=== PATIENT | female | born 1995 | race Caucasian/White ===

== ENCOUNTER 2020-05-08 12:41 | Outpatient (REF) | payer BC, SELFPAY ==
[2020-05-08 13:22] LABS: Bilirubin Negative (Negative); Blood Negative (Negative); Clarity Clear (Clear); Glucose Negative (Negative); Ketones Negative (Negative); Leukocyte Esterase Negative (Negative); Nitrite Negative (Negative); Specific Gravity 1.015 (1.005-1.025); Urobilinogen 0.2 EU/dL (Up TO 0.2); pH 7.5 (5-8)
== END 2020-05-08 13:01 ==
LOC: LBN 12:41
PROVIDERS: Visit Provider Advanced Practice Midwife
DX: R30.9 Painful micturition, unspecified (principal)
CPT/HCPCS: 81003; 87086

== ENCOUNTER → 2021-12-16 11:39 | Outpatient (CLI) | payer OTHER, SELFPAY ==
--- NOTE | 2021-12-16 | DI.RAD_ITS ---
Exam(s) XR ANKLE RT COMPLETE EXAM: XR ANKLE RT COMPLETE CLINICAL HISTORY: Trauma to leg , persistent swelling, acute pain--M79.606. TECHNIQUE: 2D digital imaging was performed. COMPARISON: No exams were available for comparison FINDINGS: 3 views No evidence of fracture nor widening of the ankle mortise. Talar dome unremarkable. Bone density no rmal. No osseous lesions. On the lateral view there is a finding which is probably an accessory oss icle proximal to the navicular bone. No evidence of osseous tarsal coalition. IMPRESSION: No significant osseous findings. If clinically indicated follow-up ankle MRI can be performed. DATA REPOSITORY: RADIATION DOSE DELIVERED:
== END ==
PROVIDERS: Visit Provider Nurse Practitioner Family
DX: M25.571 Pain in right ankle and joints of right foot (principal); M79.661 Pain in right lower leg
CPT/HCPCS: 73610

== ENCOUNTER 2022-09-05 01:40 | Outpatient (CLI) | payer OTHER, SELFPAY ==
[2022-09-05 10:49] LABS: HCT 42.2 % (36.0-46.0); HGB 13.4 g/dL (11.2-15.7); MCH 29.1 pg (27.0-33.0); MCHC 31.8 % (32.0-36.0); MCV 92 fL (80-95); MPV 10.9 fL (8.0-11.0); Platelet Count 223 10^3/uL (130-400); RDW-SD 43.9 fL; WBC 5.83 10^3/uL (4.4-10.8)
[2022-09-05 11:40] LABS: Anion Gap 7.2 mmol/L (3-11); BUN 14 mg/dL (7-18); CO2 29.8 mmol/L (21.0-32.0); CREATININE 0.8 mg/dL (0.55-1.02); Calcium 8.8 mg/dL (8.5-10.1); Calculated LDL 79 mg/dL (<100); Chloride 106 mmol/L (98-107); Cholesterol 149 mg/dL (<200); Estimated GFR 104.15 (mL/min/1.73m2); Glucose 110 mg/dL (74-106); HDL Cholesterol 62 mg/dL (40-60); Potassium 3.5 mmol/L (3.5-5.1); Sodium 143 mmol/L (136-145); TSH 1.98 uIU/mL (0.36-3.74); Triglyceride 43 mg/dL (<150)
[2022-09-08 10:40] LABS: IgA 57 mg/dL (85-499); IgG 660 mg/dL (610-1616); IgM 74 mg/dL (35-242)
== END 2022-09-05 01:41 | disposition home or self-care (01) ==
PROVIDERS: Visit Provider Registered Nurse
DX: Z00.00 Encounter for general adult medical examination without abnormal findings (principal); D80.2 Selective deficiency of immunoglobulin A [IgA]
CPT/HCPCS: 36415; 80048; 80061; 82784; 85027; 84443

== ENCOUNTER 2023-06-23 12:53 | Outpatient (REF) | payer OTHER, SELFPAY ==
[2023-06-23 14:02] LABS: *AMPHETAMINES SCREEN URINE Positive (Negative); *BARBITURATES SCREEN URINE Negative (Negative); *BENZODIAZEPINES SCREEN URINE Negative (Negative); Cannabinoids THC Negative (Negative); Cocaine Screen,Urine Negative (Negative); METHADONE URINE SCREEN Negative (Negative); OPIATES URINE SCREEN Negative (Negative); Tricyclic Antidepressants Negative (Negative)
[2023-06-27 07:11] LABS: Methylphenidate Negative ng/mL (Cutoff: 10); Ritalinic Acid Negative ng/mL (Cutoff: 50)
== END 2023-06-23 12:54 | disposition home or self-care (01) ==
LOC: LBN 12:53
PROVIDERS: Visit Provider Nurse Practitioner Psychiatric/Mental Health
DX: F90.2 Attention-deficit hyperactivity disorder, combined type (principal); Z79.899 Other long term (current) drug therapy
CPT/HCPCS: 80307; 80360

== ENCOUNTER → 2023-11-12 12:18 | Outpatient (CLI) | payer OTHER, SELFPAY ==
--- OUTSIDE RECORDS SUMMARY | 2023-11-12 12:20 | XMS_ITS | Continuity of Care Document ---
Author Name Unknown Organization [facility] Address [address] [place] [address] Care Team Providers Care Hat Marker Name Role Phone Brian Torres Primary Care Physician Encounter [facility] Date(s): 08/06/22 - 08/06/[address] [id number] Discharge Disposition: Home or Self Care Attending Physician: Jayde Manzano DNP Admitting Physician: Jayde Manzano DNP Allergies, Adverse Reactions, Alerts No Known Medication Allergies Assessment and Plan Future Appointments Diagnostic Tests Pending * Amphetamines Cnfrm, Ur DARNELL 08/06/22 Future Scheduled Tests Radiology* XR Ankle Complete 3+ Views Right 12/16/21 * XR Tibia/Fibula Right 12/16/21 Immunizations Given and Recorded Vaccine Date Status Refusal Reason influenza virus vaccine, inactivated 1 02/27/22 Re corded influenza virus vaccine, inactivated 04/10/17 Tj rded influenza virus vaccine, inactivated 02/02/15 Tj rded SARS-CoV-2 (COVID-19) mRNA BNT-162b2 vax 05/13/21 Recorded SARS-CoV-2 (COVID-19) mRNA BNT-162b2 vax 05/23/20 Recorded SARS-CoV-2 (COVID-19) mRNA BNT-162b2 vax 05/02/20 Recorded influenza virus vaccine, live 01/22/21 Recorded influenza virus vaccine, live 02/20/20 Recorded influenza virus vaccine, live 02/25/18 Recorded tetanus-diphth toxoids (Td) adult/adol 07/13/17 Re corded hepatitis A adult vaccine 07/13/17 Recorded hepatitis A adult vaccine 01/02/16 Recorded typhoid vaccine, inactivated 07/13/17 Recorded hepatitis B adult vaccine 05/25/17 Recorded meningococcal conjugate vaccine 07/07/14 Recorded meningococcal conjugate vaccine 01/22/10 Recorded HPV, unspecified formulation 10/14/12 Recorded HPV, unspecified formulation 05/27/12 Recorded HPV, unspecified formulation 03/25/12 Recorded tetanus/diphth/pertuss (Tdap) adult/adol 01/03/08 Recorded varicella virus vaccine 01/03/08 Recorded varicella virus vaccine 02/01/04 Recorded diphtheria/pertussis, acellular/tetanus 05/06/01 R ecorded diphtheria/pertussis, acellular/tetanus 12/12/97 R ecorded poliovirus vaccine, inactivated 05/06/01 Recorded poliovirus vaccine, inactivated 96 Recorded measles/mumps/rubella virus vaccine 06/04/00 Recor ded measles/mumps/rubella virus vaccine 05/18/97 Recor ded poliovirus vaccine, live, trivalent 12/12/97 Recor ded poliovirus vaccine, live, trivalent 96 Recor ded poliovirus vaccine, live, trivalent 96 Recor ded haemophilus b conjugate (PRP-T) vaccine 12/12/97 R ecorded hepatitis B pediatric vaccine 09/04/97 Recorded hepatitis B pediatric vaccine 02/06/97 Recorded hepatitis B pediatric vaccine 96 Recorded DTP-Hib 96 Recorded DTP-Hib 96 Recorded DTP-Hib 96 Recorded 1Result Comment: [employer] Medications Adderall 20 mg oral tablet 20 mg 1 tab, Oral, every morning, # 28 tab, 0 Refill(s), Pharmacy: [id number], 162.56, cm, 11/07/21 3:24:00 EDT, Height/Length Dosing, 54.43, kg, 11/07/21 3:24:00 EDT, Weight Dosing Start Date: 08/06/22 Stop Date: 09/03/22 Status: Ordered Adderall XR 20 mg oral capsule, extended release 20 mg 1 cap, Oral, every morning, Please fill 10/14/2022, # 28 cap, 0 Refill(s), Pharmacy: [id number], 162.56, cm, 11/07/21 3:24:00 EDT, Height/Length Dosing, 54.43, kg, 11/07/21 3:24:00 EDT, Weight Dosing Start Date: 08/06/22 Stop Date: 09/03/22 Status: Ordered Adderall XR 20 mg oral capsule, extended release 20 mg 1 cap, Oral, every morning, Please fill 09/16/2022, # 28 cap, 0 Refill(s), Pharmacy: [id number], 162.56, cm, 11/07/21 3:24:00 EDT, Height/Length Dosing, 54.43, kg, 11/07/21 3:24:00 EDT, Weight Dosing Start Date: 08/06/22 Stop Date: 09/03/22 Status: Ordered Adderall XR 20 mg oral capsule, extended release 20 mg 1 cap, Oral, every morning, May fill 07/18/2022, # 30 cap, 0 Refill(s), Pharmacy: [id number], 162.56, cm, 11/07/21 3:24:00 EDT, Height/Length Dosing, 54.43, kg, 11/07/21 3:24:00 EDT,Weight Dosing Start Date: 05/14/22 Stop Date: 06/13/22 Status: Ordered Albuterol (Eqv-ProAir HFA) 90 mcg/inh inhalation aerosol See Instructions, 1-2 puffs every 4-6 hours as needed and 20 minutes prior to exercise, # 1 EA, 2 Refill(s), Pharmacy: [id number], 162.56, cm, 11/07/21 3:24:00 EDT, Height/Length Dosing, 54.43, kg, 11/07/21 3:24:00 EDT, Weight Dosing Start Date: 01/16/22 Status: Ordered multivitamin adult, oral tablet 1 tab, Oral, Daily Start Date: 12/02/21 Status: Ordered NuvaRing 0.120 mg-0.015 mg/24 hours vaginal ring 1 EA, VAG, every 4 wk, # 3 EA, 4 Refill(s), Pharmacy: [id number], 162.56, cm, 11/07/21 3:24:00 EDT, Height/Length Dosing, 54.43, kg, 11/07/21 3:24:00 EDT, Weight Dosing Start Date: 12/05/21 Status: Ordered Problem List Condition Confirmation Course Effective Dates Status H ealth Status Informant Attention deficit hyperactivity disorder (ADHD), combined type Confirmed Active Chronic gastritis Confirmed 02/09/18 Active Cough Confirmed 04/15/18 Active 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 Mild major depression Confirmed 03/26/21 Active Encounter for medication management Confirmed Active Medication management Confirmed Active Premenstrual dysphoric disorder Confirmed 03/27/20 Active Tremor Confirmed 01/02/21 Active Procedures Procedure Date Related Diagnosis Body Site Status Pap Due - 12/2023 1 12/23/20 Co mpleted Endoscopy 05/10/17 Completed 1Pap Due - 12/2023 08/04/17 - Negative; 12/24/20 - Negative Results Laboratory List Name Date Drug Screen Urine (Drug Screen Urine w/ Reflex) 08/06/22 Most recent to oldest [Reference Range]: 1 U Amph Scrn [Negative] Positive *ABN* (08/06/22 3:32 PM) U Benzodia Scrn [Negative] Negative (08/06/22 3:32 PM) U Cocaine Scrn [Negative] Negative (08/06/22 3:32 PM) U Brittney Scrn [Negative] Negative (08/06/22 3:32 PM) U Opiate Scrn [Negative] Negative (08/06/22 3:32 PM) U Oxy Scrn [Negative] Negative (08/06/22 3:32 PM) U PCP Scrn [Negative] Negative (08/06/22 3:32 PM) U THC Scr [Negative] Negative (08/06/22 3:32 PM) U PPX Scr [Negative] Negative (08/06/22 3:32 PM) U Methadone Scr [Negative] Negative (08/06/22 3:32 PM) U Buprenorph Scr [Negative] Negative (08/06/22 3:32 PM) U mAMP Scr [Negative] Negative (08/06/22 3:32 PM) U TCA Scr [Negative] Negative (08/06/22 3:32 PM) Social History Social History Type Response Tobacco Never tobacco user T obacco Use:. Sex Female summary Document * Event Display: Summary Document Authored Date: [id number] HECTOR CAMARA : 1995 Age: 27 Years HECTOR CAMARA : [birth year] Summary (Date of Report: 06/16/22) G 1 P 0 (0,0,1,0) Gestation: -- LMP (from pt. history): -- EDITH: 05/29/2022 EDITH/EGA Method: Last Menstrual Period EGA: 42 weeks 4 days HECTOR CAMARA : [birth year] Antepartum Note No antepartum notes have been documented HOA HECTOR GRACIELA : [birth year] Problems (Active Problems Only) (SNOMED CT: 169682911, Onset: 08/22/21) Mild major depression (SNOMED CT: 272873173, Onset: 03/26/21) Tremor (SNOMED CT: 64120019, Onset: 01/02/21) Premenstrual dysphoric disorder (SNOMED CT: 6854970, Onset: 03/27/20) Cough (SNOMED CT: 32855178, Onset: 04/15/18) Immunoglobulin A deficiency (SNOMED CT: 64205297, Onset: 04/06/18) Chronic gastritis (SNOMED CT: 06810371, Onset: 02/09/18) [facility], Onset: --) Attention deficit hyperactivity disorder, combined type [facility]: 4[facility], Onset: --) HOA HECTOR GRACIELA : [birth year] Risk Factors and Genetic Screening All Results Documented Since 08/22/2021 Risk Factors (Current ) No risk factors have been recorded for this . Ethnic Screening No ethnicities have been recorded. Genetic Disorders Screening No genetic disorders have been recorded. HECTOR CAMARA : [birth year] Gestational Age (EGA) and EDITH * Note: EGA calculated as of 06/16/2022 EDITH: 05/29/2022 EGA*: 42 weeks 4 days Type: Authoritative Method Date: 08/22/2021 Method: Last Menstrual Period (08/22/2021) Confirmation: Confirmed Description: -- Comments: -- Entered by: Michelle Abbott on 09/30/2021 Other EDITH Calculations for this : No additional EDITH calculations have been recorded for this HECTOR CAMARA : [birth year] Measurements Pre- Weight: -- Recent Weight Measured: 53.25 kg 05/14/22 (37 weeks) Height/Length Measured: -- Body Mass Index Measured: -- HECTOR CAMARA : [birth year] Exam and Notes Date HERMELINDO He PTL S/S Cervix BP Weight Urine Baby cm Dil Eff(%) Sta mmHg lbs kg Gluc Prot FHR Activity Fet Pres 05/14/22 37w6d -- -- -- -- -- 120/80 *117... -- -- -- -- -- 01/31/22 23w1d -- -- -- -- -- 120/80 *117... -- -- -- -- -- 12/16/21 16w4d -- -- -- -- -- 112/72 *116... -- -- -- -- -- 12/05/21 15w0d -- -- -- -- -- -- *252... -- -- -- -- -- 11/07/21 11w0d -- -- -- -- -- 117/73 -- -- -- -- -- -- * Weight 05/14/2022 117.416(lbs) 53.25(kg) 01/31/2022 117.857(lbs) 53.45(kg) 12/16/2021 116.711(lbs) 52.93(kg) 12/05/2021 252.914(lbs) 114.7(kg) HOA HECTOR GRACIELA : [birth year] Physical Exams Physical Exam Respiratory SpO2: 100 % (05/14/22) HOA HECTOR GRACIEAL : [birth year] Blood Types and Anti-D Immune Globulin Blood Type and Screen Mother ABO/Rh: A POS Mother Antibody Screen: -- Father of Baby ABO/Rh: -- Father of Baby Antibody Screen: -- Anti-D Immune Globulin Rho(D) Initial Status: -- Rho(D) 28 Week Status: -- Rho(D) Dates Given: -- HOA HECTOR GRACIELA : [birth year] Tests and Lab Results Results ending with 'TR' have been keyed in by the practice or interpreted manually. Result Date: Estimated weeks post onset will display next to actual result date. Test Result Date Ref Range Beta hCG Qnt (H) 203 mIntlUnit/mL 09/24/21 (4 weeks) (1 - 6) WBC 7.0 x10^6/mcL 10/08/21 (6 weeks) (5.0 - 10.0) RBC 4.5 x10^6/mcL 10/08/21 (6 weeks) (4.1 - 5.3) MCV 94.9 fL 10/08/21 (6 weeks) (80.0 - 103.0) MCHC 31.8 g/dL 10/08/21 (6 weeks) (31.0 - 35.0) Hct 42.5 % 10/08/21 (6 weeks) (37.0 - 47.0) MCH 30.1 pg 10/08/21 (6 weeks) (26.0 - 32.0) Hgb 13.5 g/dL 10/08/21 (6 weeks) (12.0 - 16.0) Platelets 158 x10^3/mcL 10/08/21 (6 weeks) (130 - 450) RDW-CV 12.9 % 10/08/21 (6 weeks) (11.7 - 17.0) UA RBC 0-2 10/08/21 (6 weeks) 0-2 UA WBC 0-3 10/08/21 (6 weeks) 0-3 UA Bacteria Rare /HPF 10/08/21 (6 weeks) UA Mucous None Seen /HPF 10/08/21 (6 weeks) UA Culture Ind?. Not Applicable 10/08/21 (6 weeks) UA Squam Epithelial Rare 10/08/21 (6 weeks) None Seen UA Color Yellow 10/08/21 (6 weeks) UA Spec Grav (N) 1.010 10/08/21 (6 weeks) UA Blood Negative 10/08/21 (6 weeks) UA Appear Clear 10/08/21 (6 weeks) UA pH (N) 7.5 10/08/21 (6 weeks) UA Protein Negative 10/08/21 (6 weeks) UA Glucose Negative 10/08/21 (6 weeks) Negative UA Nitrite Negative 10/08/21 (6 weeks) UA Leuk Est Negative 10/08/21 (6 weeks) UA Ketones Negative 10/08/21 (6 weeks) UA Bili Negative 10/08/21 (6 weeks) Negative UA Urobilinogen Normal 10/08/21 (6 weeks) ABO/Rh Type (U) A POS 10/08/21 (6 weeks) Antibody Screen Gel Negative ABSC 10/08/21 (6 weeks) Hep B Surface Ag [facility] (N) Negative 10/08/21 (6 weeks) Negative HIV 1 and 2 Ab/p24 Ag, 4th Gen [facility] (N) Negative 10/08/21 (6 weeks) Negative Hep C Antibody [facility] (N) Negative 10/08/21 (6 weeks) Negative Rubella IgG Ab [facility] (N) Positive 10/08/21 (6 weeks) See Note Syphilis Serology [facility] (N) Negative 10/08/21 (6 weeks) Negative Beta hCG Qnt (H) 13457 mIntlUnit/mL 10/14/21 (7 weeks) (1 - 6) Test Result Date Ref Range Beta hCG Qnt (H) 54949 mIntlUnit/mL 10/24/21 (9 weeks) (1 - 6) Beta hCG Qnt (H) 69819 mIntlUnit/mL 10/31/21 (10 weeks) (1 - 6) Platelets 176 x10^3/mcL 11/07/21 (11 weeks) (130 - 450) Hgb 12.7 g/dL 11/07/21 (11 weeks) (12.0 - 16.0) MCH 29.5 pg 11/07/21 (11 weeks) (26.0 - 32.0) Hct 38.9 % 11/07/21 (11 weeks) (37.0 - 47.0) MCHC 32.6 g/dL 11/07/21 (11 weeks) (31.0 - 35.0) MCV 90.5 fL 11/07/21 (11 weeks) (80.0 - 103.0) WBC 9.4 x10^3/mcL 11/07/21 (11 weeks) (5.0 - 10.0) RBC 4.3 x10^6/mcL 11/07/21 (11 weeks) (4.1 - 5.3) RDW-CV 12.6 % 11/07/21 (11 weeks) (11.7 - 17.0) Neutro Absolute (N) 7.5 x10^3/mcL 11/07/21 (11 weeks) Eos, Auto (L) 0.6 % 11/07/21 (11 weeks) (1.0 - 6.0) Lymph Auto (L) 13.7 % 11/07/21 (11 weeks) (20.0 - 50.0) [place] Auto 5.7 % 11/07/21 (11 weeks) (2.0 - 15.0) Basophil Auto 0.3 % 11/07/21 (11 weeks) (0.0 - 1.0) Imm Gran Auto 0.4 % 11/07/21 (11 weeks) (0.0 - 0.9) Neutro Auto (H) 79.3 % 11/07/21 (11 weeks) (40.0 - 75.0) U THC Scr Negative 01/31/22 (23 weeks) Negative U Brittney Scrn Negative 01/31/22 (23 weeks) Negative U Methadone Scr Negative 01/31/22 (23 weeks) Negative U PPX Scr Negative 01/31/22 (23 weeks) Negative U Opiate Scrn Negative 01/31/22 (23 weeks) Negative U Cocaine Scrn Negative 01/31/22 (23 weeks) Negative U Benzodia Scrn Negative 01/31/22 (23 weeks) Negative U Oxy Scrn Negative 01/31/22 (23 weeks) Negative U PCP Scrn Negative 01/31/22 (23 weeks) Negative U TCA Scr Negative 01/31/22 (23 weeks) Negative U Amph Scrn (A) Positive 01/31/22 (23 weeks) Negative U Buprenorph Scr Negative 01/31/22 (23 weeks) Negative U mAMP Scr Negative 01/31/22 (23 weeks) Negative Phentermine LC-MS/MS [place] (N) Negative ng/mL 01/31/22 (23 weeks) Cutoff: 25 Amphetamine LC-MS/MS [place] (N) 2455 ng/mL 01/31/22 (23 weeks) Cutoff: 25 MDMA (Ecstasy) LC-MS/MS [place] (N) Negative ng/mL 01/31/22 (23 weeks) Cutoff: 25 MDA (Ecstasy metabolite) LC-MS/MS [place] (N) Negative ng/mL 01/31/22 (23 weeks) Cutoff: 25 Pseudoephedrine/Ephedrine LC-MS/MS [place] (N) Negative ng/mL 01/31/22 (23 weeks) Cutoff: 25 Methamphetamine LC-MS/MS [place] (N) Negative ng/mL 01/31/22 (23 weeks) Cutoff: 25 Amphetamines Interp [place] (N) Positive. 01/31/22 (23 weeks) HOA HECTOR GRACIELA : [birth year] Actions No Actions have been documented. KELY CAMARAAH GRACIELA : [birth year] Situational Awareness No comments have been documented. HECTOR CAMARA : [birth year] Allergies (Active and Proposed Allergies Only) No Known Medication Allergies (Severity: Unknown, Onset: Unknown) HOA HECTOR GRACIELA : [birth year] Medications Prescriptions and Home Medications Currently Active or Taking Adderall XR 20 mg oral capsule, extended release SI mg = 1 cap, Oral, every morning, for 28 days, 28 cap, 0 Refill(s) Ordered: 05/14/22 Provider: Jayde Manzano DNP Adderall XR 20 mg oral capsule, extended release SI mg = 1 cap, Oral, every morning, for 30 days, May fill 07/18/2022, 30 cap, 0 Refill(s) Ordered: 05/14/22 Provider: Jayde Manzano DNP Adderall XR 20 mg oral capsule, extended release SI mg = 1 cap, Oral, every morning, for 30 days, May fill 06/18/2022, 30 cap, 0 Refill(s) Ordered: 05/14/22 Provider: Jayde Manzano DNP Albuterol (Eqv-ProAir HFA) 90 mcg/inh inhalation aerosol SIG: See Instructions, 1-2 puffs every 4-6 hours as needed and 20 minutes prior to exercise, 1 EA, 2 Refill(s) Ordered: 01/16/22 Provider: Jaime Collins PA-C multivitamin adult, oral tablet (Historically recorded) SI tab, Oral, Daily Ordered: 12/02/21 Provider: -- NuvaRing 0.120 mg-0.015 mg/24 hours vaginal ring SI EA, VAG, every 4 wk, 3 EA, 4 Refill(s) Ordered: 12/05/21 Provider: Rachel-Wesley, Madina CNM Inactive or Suspended (Prescriptions and documented medications since 05/24/21) Adderall XR 20 mg oral capsule, extended release SI mg = 1 cap, Oral, every morning, for 28 days, Please fill 03/28/2022, 28 cap, 0 Refill(s) Status: Completed Ordered: 03/24/22 Provider: Jayde Manzano DNP Adderall XR 20 mg oral capsule, extended release SI mg = 1 cap, Oral, every morning, for 28 days, 28 cap, 0 Refill(s) Status: Completed Ordered: 04/21/22 Provider: Jayde Manzano DNP Adderall XR 20 mg oral capsule, extended release SI mg = 1 cap, Oral, every morning, for 28 days, Please fill 02/27/2022, 28 cap, 0 Refill(s) Status: Completed Ordered: 01/31/22 Provider: Jayde Manzano DNP Adderall XR 20 mg oral capsule, extended release SI mg = 1 cap, Oral, every morning, for 28 days, Please fill 03/28/2022, 28 cap, 0 Refill(s) Status: Discontinued Ordered: 01/31/22 Provider: Jayde Manzano DNP Adderall XR 20 mg oral capsule, extended release SI mg = 1 cap, Oral, every morning, for 30 days, 30 cap, 0 Refill(s) Status: Completed Ordered: 09/25/21 Provider: Jayde Manzano DNP Adderall XR 20 mg oral capsule, extended release SI mg = 1 cap, Oral, every morning, for 30 days, 30 cap, 0 Refill(s) Status: Completed Ordered: 12/31/21 Provider: Jayde Manzano DNP Adderall XR 20 mg oral capsule, extended release SI mg = 1 cap, Oral, every morning, for 28 days, 28 cap, 0 Refill(s) Status: Discontinued Ordered: 01/28/22 Provider: Jayde Manzano DNP Adderall XR 20 mg oral capsule, extended release SI mg = 1 cap, Oral, every morning, for 30 days, 30 cap, 0 Refill(s) Status: Completed Ordered: 11/28/21 Provider: Ran Matson MD BenzaClin 1%-5% topical gel SI maricarmen, Topical, BID, 25 g, 3 Refill(s) Status: Discontinued Ordered: 10/11/21 Provider: Madina Harkins CNM Loryna 3 mg-0.02 mg oral tablet (Historically recorded) SI tab, Oral, Daily Status: Completed Ordered: 01/21/22 Provider: -- sertraline 50 mg oral tablet (Historically recorded) SI mg = 1 tab, Oral, every morning Status: Discontinued Ordered: 01/21/22 Provider: -- sertraline 50 mg oral tablet (Historically recorded) SI mg = 1 tab, Oral, every morning Status: Discontinued Ordered: 12/02/21 Provider: -- Vitamin B6 100 mg oral tablet (Historically recorded) SI mg = 2 tab, Oral, BID, with meals for 30 days Status: Discontinued Ordered: 12/02/21 Provider: -- Medication Administrations In-Office/Hospital (All in-office/hospital administrated medications ordered since 05/24/21) ibuprofen (ibuprofen 600 mg Tab [NCTY]) 600 mg = 1 tab, Oral, Once Status: Completed Ordered: 11/07/21 Provider: Ran Franco MD ibuprofen 600 mg = 1 tab, N/A, Once Status: Completed Ordered: 11/07/21 Provider: DomainUser, Generated ondansetron 4 mg = 1 EA, N/A, Once Status: Completed Ordered: 11/07/21 Provider: McUser, Generated ondansetron 4 mg = 1 tab, N/A, Once Status: Completed Ordered: 11/07/21 Provider: DomainUser, Generated THP ondansetron 4 mg Dis Tab (THP ONDANSETRON TAB 4 MG TAKE HOME (4 TAB) [NCTY]) 4 mg = 1 EA, Oral, Once Status: Completed Ordered: 11/07/21 Provider: Ran Franco MD Zofran (ondansetron 4 mg Dis Tab [NCTY]) 4 mg = 1 tab, Oral, Once Status: Completed Ordered: 11/07/21 Provider: Ran Franco MD HOA HECTOR GRACIELA : [birth year] Immunizations influenza virus vaccine, inactivated 02/27/22 (27 weeks) HOA HECTOR GRACIELA : [birth year] Menstrual History Last Recorded Menstrual Period: -- Last Menstrual Period Description: -- Menarche Onset: -- Menarche Frequency: -- Menarche Length: -- Date of Menses Prior to LMP: -- On Hormonal Contracept within 2 months of LMP: -- Date of Home Test: -- Comments: -- KELY CAMARAAH GRACIELA : [birth year] History (0,0,1,0) # 1 Baby 1 Outcome Date: 10/23/2021 Outcome or Result: Spontaneous Gest Age: 6 weeks Outcome: Sex: -- HECTOR CAMARA : [birth year] Medical History Past Medical History Attention deficit hyperactivity disorder, combined type (SNOMED CT: ) Onset Age: 24 Years (03/27/2020) Resolved: -- Family History Mother (Name not documented, Alive) Anxiety Depressive disorder Procedure or Surgical History PAP test date Age: 25 Years Date: 12/24/2020 Comment: Pap Due - 12/2023 08/04/17 - Negative; 12/24/20 - Negative (Michelle Abbott on 12/03/21) Endoscopy Age: 22 Years Date: 05/11/2017 HECTOR CAMARA : [birth year] Social & Psychosocial History Social History Alcohol Current, 1-2 times per month Employment/School Employed, Work/School description: radiology. Home/Environment Lives with Father, Mother. Nutrition/Health Caffeine intake amount: coffee-one cup daily. Sleeping concerns: No. Other Comment: 07-26-21 non-opioid consent agreement form for controlled substance signed. (01/31/2022 14:00 Vani Alford) Sexual Other contraceptive use: None. Substance Abuse Never Tobacco Never tobacco user Tobacco Use:. Psychosocial Comment: Pt. reports that the Adderall XR 20 mg''s daily is helpful in managing her ADHD symptoms especially while in school. SHe has 8 left out of 28 filled 04-25-22. Last UDS done in 01-31-22. (05/14/2022 14:23 Vani Alford); Pt. report that the Adderall XR is managing her ADHD symptoms. She stopped the Sertraline felt it was ineffective. SHe is not taking the Vitamin B-6. Uds obtained today and sent to lab. (01/31/2022 14:00 Vani Alford) Electronic Cigarette/Vaping Electronic Cigarette Use: Never. Psychosocial History No active psychosocial history has been recorded HECTOR CAMARA : [birth year] Infection History Infection history negative or not recorded HOAHECTOR GRACIELA : [birth year] Anesthesia and Transfusions Prior Anesthesia or Transfusion Received: -- Prior Anesthesia Reaction(s): -- Prior Transfusion Reaction(s): -- Blood Transfusion Acceptable to Patient: -- HECTOR CAMARA : [birth year] Plan and Patient Requests Desired Delivery Location: -- Education: -- Written Plan: -- Written Plan Location: -- Support Person/Contact Lens Manufacturer Relationship to Pt: -- Oral Intake OB: -- Labor Preferences: -- Non-Medicinal Pain Relief: -- Anesthesia/Pain Medication During Labor: -- Delivery Plan: -- Infant Feeding: -- Circumcision: -- Baby For Adoption: -- Patient Requests: -- Father of the Baby's Name: -- Zipper Lining Folder Selected: -- Surrogate : -- Support Person's Name: -- MARELYHECTOR MILES GRACIELA : [birth year] Education Educational Materials/Leaflets Provided Title/Topic Date Provided Miscarriage 11/07/21 HOAHECTOR GRACIELA : [birth year] Registration and Information Race: White Ethnicity: Not , , or German Origin Marital Status: Single Language(s): Mauritian Moravian Preference(s): Other Occupation/Education: Radiology Address, Phone, and Health Plans Home Address: [address], [place] [phone] (Home), , -- Health Plans: 1 - [employer] Member/Group: [id number] Deductible: $ -- Type: Commercial Address: [employer] [address], [place] [id number] 2 - [facility] Member/Group: [id number] Deductible: $ -- Type: Commercial Address: [employer] [address], [place] [id number] General Information OB Provider(s) Information: Madina Harkins CNM See below for detailed information for all visits and information. Delivery Center/Hospital Information: -- [place] Provider Information: -- Referring Provider Information: Jayde Manzano DNP Primary Provider Information: Brian Torres NP /Partner Information: -- -- Support Person Information: -- Planned/Unplanned : -- Date Consent Signed for Tubal Ligation: -- Date Record Sent to Hospital: -- HECTOR CAMARA : [birth year] Visits and Encounters (Known encounters since 08/22/2021. May include lab encounters.) Date Location Provider Type Medical Service 08/06/2022 [facility] Jayde [facility] 05/14/2022 [facility], Jayde [facility] 01/31/2022 [facility] Laboratory [facility], Jayde [facility] Outpatient Lab Non-Patient 01/31/2022 [facility], Jayde [facility] [place] [facility] [facility] Clinic 12/16/2021 [facility] Clinic 12/05/2021 Exam Room 5 Madina Harkins CNM Clinic [facility] 11/07/2021 9 Ran Franco MD Emergency Emergency Medicine 10/31/2021 [facility] Laboratory [place], Madina [facility] Outpatient Lab 10/24/2021 [facility] [place], Madina [facility]A Outpatient Lab 10/23/2021 [facility] Imaging Madina Harkins Outpatient US 10/14/2021 [facility] Rachel-Maryjane, Madina [facility] Outpatient Lab 10/08/2021 [facility] [place], Madina CALDERA Outpatient Lab 09/29/2021 [facility] OBGYN -- History -- 09/24/2021 [facility] Madina Harkins Outpatient Lab HECTOR CAMARA : [birth year] Visit / Encounter Location Information The following information represents known location and contact information for locations visitedduring [facility] [place] Business Address: [address], [place] [phone] ([employer]), ([employer]) [facility] Business Address: [address], [place] [id number] Phone:[phone] (Business) [facility] [place] Business Address: [address], [place] [phone] ([employer]) [facility] Business Address: [address], [address] [place], [place] [address] Phone:[phone] ([employer]), [phone] ([employer]) HECTOR CAMARA : [birth year] Visit Diagnosis (Note: All diagnoses documented since 08/22/2021) 05/14/22 - Attention-deficit hyperactivity disorder, combined type (ICD-10-CM: F90.2, Date: ) 05/14/22 - Attention-deficit hyperactivity disorder, combined type (ICD-10-CM: F90.2, Date: ) 05/14/22 - Premenstrual dysphoric disorder (ICD-10-CM: F32.81, Date: 05/14/22) 05/14/22 - Attention-deficit hyperactivity disorder, combined type (ICD-10-CM: F90.2, Date: 05/14/22) 01/31/22 - Other middle or intermediate school principal (current) drug therapy (ICD-10-CM: Z79.899, Date: ) 01/31/22 - Other middle or intermediate school principal (current) drug therapy (ICD-10-CM: Z79.899, Date: ) 01/31/22 - Other middle or intermediate school principal (current) drug therapy (ICD-10-CM: Z79.899, Date: 01/31/22) 01/31/22 - Attention-deficit hyperactivity disorder, combined type (ICD-10-CM: F90.2, Date: ) 01/31/22 - Attention-deficit hyperactivity disorder, combined type (ICD-10-CM: F90.2, Date: ) 01/31/22 - Premenstrual dysphoric disorder (ICD-10-CM: F32.81, Date: 01/31/22) 01/31/22 - Other middle or intermediate school principal (current) drug therapy (ICD-10-CM: Z79.899, Date: 01/31/22) 01/31/22 - Attention-deficit hyperactivity disorder, combined type (ICD-10-CM: F90.2, Date: 02/02/22) 12/16/21 - Pain in right leg (ICD-10-CM: M79.604, Date: ) 12/16/21 - Pain in right leg (ICD-10-CM: M79.604, Date: ) 12/16/21 - Pain in right leg (ICD-10-CM: M79.604, Date: 12/16/21) 12/05/21 - Complete or unspecified spontaneous without complication (ICD-10-CM: O03.9, Date: ) 12/05/21 - Encounter for surveillance of other contraceptives (ICD-10-CM: Z30.49, Date: ) 12/05/21 - Complete or unspecified spontaneous without complication (ICD-10-CM: O03.9, Date: ) 12/05/21 - Encounter for surveillance of other contraceptives (ICD-10-CM: Z30.49, Date: 12/05/21) 12/05/21 - Complete or unspecified spontaneous without complication (ICD-10-CM: O03.9, Date: 12/05/21) 11/07/21 - Complete or unspecified spontaneous without complication (ICD-10-CM: O03.9, Date: ) 11/07/21 - Other middle or intermediate school principal (current) drug therapy (ICD-10-CM: Z79.899, Date: ) 11/07/21 - Abnormal uterine and vaginal bleeding, unspecified (ICD-10-CM: N93.9, Date: ) 11/07/21 - Complete or unspecified spontaneous without complication (ICD-10-CM: O03.9, Date: ) 11/07/21 - Abnormal uterine and vaginal bleeding, unspecified (ICD-10-CM: N93.9, Date: 11/07/21) 11/07/21 - Complete or unspecified spontaneous without complication (ICD-10-CM: O03.9, Date: 11/07/21) 11/07/21 - Vaginal bleeding - < 20 wks (PNED: [id number], Date: 11/07/21) 10/31/21 - with inconclusive viability, not applicable or unspecified (ICD-10-CM: O36.80X0, Date: ) 10/31/21 - with inconclusive viability, not applicable or unspecified (ICD-10-CM: O36.80X0, Date: ) 10/31/21 - with inconclusive viability, not applicable or unspecified (ICD-10-CM: O36.80X0, Date: 10/31/21) 10/24/21 - with inconclusive viability, not applicable or unspecified (ICD-10-CM: O36.80X0, Date: ) 10/24/21 - with inconclusive viability, not applicable or unspecified (ICD-10-CM: O36.80X0, Date: ) 10/24/21 - with inconclusive viability, not applicable or unspecified (ICD-10-CM: O36.80X0, Date: 10/24/21) 10/23/21 - Encounter for supervision of normal first , first trimester (ICD-10-CM: Z34.01,Date: ) 10/23/21 - Encounter for supervision of normal first , first trimester (ICD-10-CM: Z34.01,Date: ) 10/23/21 - Encounter for supervision of normal , unspecified, unspecified trimester (ICD-10-CM: Z34.90, Date: 10/23/21) 10/23/21 - Acne vulgaris (ICD-10-CM: L70.0, Date: 10/11/21) 10/14/21 - Encounter for supervision of normal first , first trimester (ICD-10-CM: Z34.01,Date: ) 10/14/21 - Encounter for supervision of normal first , first trimester (ICD-10-CM: Z34.01,Date: ) 10/14/21 - Encounter for supervision of normal , unspecified, unspecified trimester (ICD-10-CM: Z34.90, Date: 10/14/21) 10/08/21 - Encounter for supervision of normal , unspecified, unspecified trimester (ICD-10-CM: Z34.90, Date: ) 10/08/21 - Encounter for supervision of normal , unspecified, unspecified trimester (ICD-10-CM: Z34.90, Date: ) 10/08/21 - Encounter for supervision of normal , unspecified, unspecified trimester (ICD-10-CM: Z34.90, Date: 10/08/21) 10/08/21 - Encounter for supervision of normal , unspecified, unspecified trimester (ICD-10-CM: Z34.90, Date: 10/08/21) 10/08/21 - Encounter for supervision of normal , unspecified, unspecified trimester (ICD-10-CM: Z34.90, Date: 10/08/21) 10/08/21 - Encounter for supervision of normal , unspecified, unspecified trimester (ICD-10-CM: Z34.90, Date: 10/08/21) 10/08/21 - Encounter for supervision of normal , unspecified, unspecified trimester (ICD-10-CM: Z34.90, Date: 10/08/21) 10/08/21 - Encounter for supervision of normal , unspecified, unspecified trimester (ICD-10-CM: Z34.90, Date: 10/08/21) 10/08/21 - Encounter for supervision of normal , unspecified, unspecified trimester (ICD-10-CM: Z34.90, Date: 10/08/21) 10/08/21 - Encounter for supervision of normal , unspecified, unspecified trimester (ICD-10-CM: Z34.90, Date: 10/08/21) 10/08/21 - Encounter for supervision of normal , unspecified, unspecified trimester (ICD-10-CM: Z34.90, Date: 10/08/21) 10/08/21 - Encounter for supervision of normal , unspecified, unspecified trimester (ICD-10-CM: Z34.90, Date: 10/08/21) 09/29/21 - with inconclusive viability, not applicable or unspecified (ICD-10-CM: O36.80X0, Date: 10/24/21) 09/29/21 - Encounter for supervision of normal , unspecified, unspecified trimester (ICD-10-CM: Z34.90, Date: 09/29/21) 09/24/21 - Irregular menstruation, unspecified (ICD-10-CM: N92.6, Date: ) 09/24/21 - Irregular menstruation, unspecified (ICD-10-CM: N92.6, Date: ) 09/24/21 - Irregular menstruation, unspecified (ICD-10-CM: N92.6, Date: 09/24/21) 07/26/21 - Attention-deficit hyperactivity disorder, combined type (ICD-10-CM: F90.2, Date: 12/31/21) 05/11/99 - Encounter for supervision of normal , unspecified, unspecified trimester (ICD-10-CM: Z34.90, Date: 05/11/99) HOA HECTOR GRACIELA : 96 Delivery Summary No labor/delivery information has been documented Note: Items documented with '--' had no clinical data which qualified at time of report creation END OF REPORT Patient Care team information Care Team Personnel Name: Madina Harkins CNM Position: Physician - Women's Health Member Role: IMAGING TECH Physician Address: Address: [address] [address] Name: Brian Torres NP Position: Physician Member Role: Primary Care Physician Care Team Related Persons Name: JEF CAMARA Address: Home Name: DANICA CAMARA Address: Home [address] [place] [address] [address] [place], [place] [id number]
--- OUTSIDE RECORDS SUMMARY | 2023-11-12 12:20 | XMS_ITS | Continuity of Care Document ---
Author Name Unknown Organization [facility] Address [address] [place] [address] Care Team Providers Care Quality Control Microbiology Supervisor Name Role Phone Halle Crow Primary Care Physician [facility] Date(s): 01/31/22 - 01/31/[address] [address] Discharge Disposition: Home or Self Care Attending Physician: Jayde Manzano DNP Admitting Physician: Jayde Manzano DNP Referring Physician: Jayde Manzano DNP Allergies, Adverse Reactions, Alerts No Known Medication Allergies Assessment and Plan Future Appointments Diagnostic Tests Pending * Amphetamines Cnfrm, Ur DARNELL 01/31/22 Future Scheduled Tests Radiology* XR Ankle Complete 3+ Views Right 12/16/21 * XR Tibia/Fibula Right 12/16/21 Immunizations Given and Recorded Vaccine Date Status Refusal Reason SARS-CoV-2 (COVID-19) mRNA BNT-162b2 vax 05/13/21 Recorded [...] Recorded hepatitis B adult vaccine 05/25/17 Recorded influenza virus vaccine, inactivated 04/10/17 Tj rded influenza virus vaccine, inactivated 02/02/15 Tj rded meningococcal conjugate vaccine 07/07/14 Recorded meningococcal conjugate [...] Recorded DTP-Hib 96 Recorded DTP-Hib 96 Recorded Medications Adderall XR 20 mg oral capsule, extended release 20 mg 1 cap, Oral, every morning, Please fill 02/27/2022, # 28 cap, 0 Refill(s), Pharmacy: [id number], 162.56, cm, 11/07/21 3:24:00 EDT, Height/Length Dosing, 54.43, kg, 11/07/21 3:24:00 EDT, Weight Dosing Start Date: 01/31/22 Stop Date: 02/28/22 Status: Ordered Adderall XR 20 mg oral capsule, extended release 20 mg 1 cap, Oral, every morning, Please fill 03/28/2022, # 28 cap, 0 Refill(s), Pharmacy: [id number], 162.56, cm, 11/07/21 3:24:00 EDT, Height/Length Dosing, 54.43, kg, 11/07/21 3:24:00 EDT, Weight Dosing Start Date: 01/31/22 Stop Date: 02/28/22 Status: Ordered Albuterol (Eqv-ProAir HFA) 90 mcg/inh inhalation aerosol See Instructions, 1-2 puffs every 4-6 hours as needed and 20 minutes prior to exercise, # 1 EA, 2 Refill(s), Pharmacy: [id number], 162.56, cm, 11/07/21 3:24:00 EDT, Height/Length Dosing, 54.43, kg, 11/07/21 3:24:00 EDT, Weight Dosing Start Date: 01/16/22 Status: Ordered multivitamin adult, oral tablet 1 tab, Oral, Daily Start Date: 12/02/21 Status: Ordered NuvaRing 0.120 mg-0.015 mg/24 hours vaginal ring 1 EA, VAG, every 4 wk, # 3 EA, 4 Refill(s), Pharmacy: [id number], 162.56, cm, 11/07/21 3:24:00 EDT, Height/Length Dosing, 54.43, kg, 11/07/21 3:24:00 EDT, Weight Dosing Start Date: 12/05/21 Status: Ordered Problem List Condition Effective Dates Status Health Status Inform ant Attention deficit hyperactiv ity disorder, combined type(Confirmed) 03/27/20 Active Chronic gastritis(Confirmed) 02/09/18 Active Cough(Confirmed) 04/15/18 Active 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(Confirmed) 03/26/21 Active Encounter for medication management(Confirmed) Active (Confirmed) 08/22/21 Active Premenstrual dysphoric disorder(Confirmed) 03/27/20 Active Tremor(Confirmed) 01/02/21 Active Procedures Procedure Date Related Diagnosis Body Site Status Pap Due - 12/2023 1 12/23/20 Co mpleted Endoscopy 05/10/17 Completed 1Pap Due - 12/2023 08/04/17 - Negative; 12/24/20 - Negative Results Laboratory List Name Date Drug Screen Urine (Drug Screen Urine w/ Reflex) 01/31/22 Most recent to oldest [Reference Range]: 1 U Amph Scrn [Negative] Positive *ABN* (01/31/22 2:21 PM) U Benzodia Scrn [Negative] Negative (01/31/22 2:21 PM) U Cocaine Scrn [Negative] Negative (01/31/22 2:21 PM) U Brittney Scrn [Negative] Negative (01/31/22 2:21 PM) U Opiate Scrn [Negative] Negative (01/31/22 2:21 PM) U Oxy Scrn [Negative] Negative (01/31/22 2:21 PM) U PCP Scrn [Negative] Negative (01/31/22 2:21 PM) U THC Scr [Negative] Negative (01/31/22 2:21 PM) U PPX Scr [Negative] Negative (01/31/22 2:21 PM) U Methadone Scr [Negative] Negative (01/31/22 2:21 PM) U Buprenorph Scr [Negative] Negative (01/31/22 2:21 PM) U mAMP Scr [Negative] Negative (01/31/22 2:21 PM) U TCA Scr [Negative] Negative (01/31/22 2:21 PM) Social History Social History Type Response Tobacco Never tobacco user T obacco Use:. Sex Female Patient Care team information Personnel Name: Halle Crow NP Address: Address: [place], [place] [address]
--- NOTE | 2023-11-12 12:52 | DI.RAD_ITS ---
Exam(s) XR KNEE LT 3V AP,LAT,CORNELIUS EXAM: XR KNEE LT 3V AP,LAT,CORNELIUS CLINICAL HISTORY: SPORTS INJURY. TECHNIQUE: 2D digital imaging was performed of the left knee. Four images were obtained. AP, later al and PA tunnel views were obtained. COMPARISON: No exams were available for comparison FINDINGS: BONES: No acute fracture is present. No bony destructive lesion is seen. JOINTS: The knee is normally aligned. There is a small joint effusion present. No loose body. SOFT TISSUE: Soft tissue densities are seen on the posterior medial thigh which are likely external. Please correlate with physical exam to exclude foreign bodies. IMPRESSION: 1. No acute fracture or dislocation. 2. Small joint effusion. DATA REPOSITORY: RADIATION DOSE DELIVERED:
--- NOTE | 2023-11-12 14:11 | DI.VRAD_ITS ---
PROCEDURE INFORMATION: Exam: XR Left Knee Exam date and time: 11/12/2023 12:43 PM Age: 28 years old Clinical indication: Injury or trauma; Other: Sports injury; Sprain or strain; Patella or knee; Left; Patient HX: Injured playing soccer TECHNIQUE: Imaging protocol: Radiologic exam of the left knee. Views: 3 views. COMPARISON: No relevant prior studies available. FINDINGS: Bones/joints: Normal. Soft tissues: Normal. IMPRESSION: No acute findings. Dictated and Authenticated by: Noel Garcia MD. Ordering:DEEPAK Villatoro MD
== END ==
PROVIDERS: Visit Provider Physician Assistant Medical
DX: M25.562 Pain in left knee (principal); M25.40 Effusion, unspecified joint
CPT/HCPCS: 73562

== ENCOUNTER → 2023-11-13 10:58 | Outpatient (CLI) | payer OTHER, SELFPAY ==
--- NOTE | 2023-11-13 | DI.MRI_ITS ---
Exam(s) MR LOWER JOINT LT WO EXAM: MR LOWER JOINT LT WO CLINICAL HISTORY: PAIN LEFT KNEE M25.562 TECHNIQUE: Multiplanar multisequence MRI of the knee was performed. COMPARISON: CR,XR XR KNEE LT 3V AP,LAT,CORNELIUS from 11/12/2023 FINDINGS: EFFUSION: There is a prominent knee joint effusion and there is a Steel cyst in the popliteal fossa w hich measures approximately 5 cm craniocaudal length. Synovial thickening is noted in the effusion. MARROW:No evidence of fractures nor significant pivot shift bone contusion. There are no significant incidental osseous lesions. No osteochondral defects evident. PATELLOFEMORAL COMPARTMENT: The quadriceps tendon is intact. The patellar ligament is intact. There is no significant thinning of the retropatellar cartilage. No evidence of fissure nor signific ant chondral defect. No osteochondral defect at this level.There is no intraosseous signal to sugges t recent patellar dislocation. There is some outward bowing of the patellar retinacula due to the si ze of the joint effusion. However, there are no patellar retinacular tears. CRUCIATE LIGAMENTS: Mild signal abnormality noted in the ACL but no high-grade tear of this structure evident.The posterior cruciate ligament is intact. MEDIAL COMPARTMENT/MEDIAL MENISCUS: On the sagittal T2 fat sat imagesthere is the suggestion of the t iny tear in the most posterior aspect of the posterior horn of the medial meniscus, just anterior to the PCL. However, this is not seen in the other planes. The meniscal root appears intact. There is no meniscocapsular separation. No meniscal extrusion.. There are no chondral defects, osteochondral defects, subarticular marrow edema, nor osteophytes evid ent. MEDIAL COLLATERAL LIGAMENT: Intact LATERAL COMPARTMENT/LATERAL MENISCUS: There is no evidence of lateral meniscal tear.There are no elsa dral defects, osteochondral defects, subarticular marrow edema, nor osteophytes evident. ILIOTIBIAL BAND: Intact LATERAL COLLATERAL LIGAMENT COMPLEX: The fibular collateral ligament is intact. The biceps femoris t endon is intact.Signal abnormality at the insertional aspect of the popliteus tendon upon the outer a spect of the lateral femoral condyle but no high-grade tear. IMPRESSION: 1. Prominent joint effusion with synovial thickening and Steel cyst 2. Findings as described individually above but with no obvious definitive internal derangement and n o significant bone contusion signal nor abnormality of the tibial plateau. DATA REPOSITORY:
== END ==
PROVIDERS: Visit Provider Physician Assistant Medical
DX: M25.562 Pain in left knee (principal); M25.40 Effusion, unspecified joint; M67.20 Synovial hypertrophy, not elsewhere classified, unspecified site; M71.22 Synovial cyst of popliteal space [Baker], left knee
CPT/HCPCS: 73721

== ENCOUNTER 2023-11-27 11:15 | Day surgery (SDC) | payer OTHER, SELFPAY ==
[2023-11-27] VITALS (19 sets, daily range): BP systolic 91–125; BP diastolic 46–90; PULSE 64–85; RESP 12–30; TEMP 36–37; O2SAT 96–100; BMI 19.2
--- NOTE | 2023-11-27 07:18 | PDOC.DSDIS_ITS ---
Date of service: 11/27/23 Time of Service: 17:00 Discharge Plan Disposition Patient Disposition: Home Condition: Stable Discharge Details Attending Provider: Jarrod Young Primary Care Provider: Brian Parekh Home Meds and New Rx's Prescriptions: New aspirin 81 mg capsule 81 mg PO DAILY 14 Days Qty: 14 0RF naproxen 250 mg tablet 250 - 500 mg PO BID PRN (Reason: moderate pain and swelling) Qty: 30 0RF Rx Instructions: take with a meal oxycodone 5 mg tablet 5 - 10 mg PO .q4-6h PRN (Reason: severe pain) Qty: 12 0RF Continued dextroamphetamine-amphetamine [Adderall XR] 20 mg capsule,extended release 24hr 20 mg PO DAILY albuterol sulfate 90 mcg/actuation aerosol powdr breath activated 2 inh inhalation Q4H PRN Discharge Instructions Additional Instructions: Surgery: Left knee arthroscopy with removal of cartilage loose bodies and trochlear chondroplasty; ACL intact Activity: Weightbearing as tolerated. Advance range of motion as comfort allows. No knee brace or crutches needed as soon as comfortable. Recommend avoiding sports, pivoting, and squatting for 6-8 weeks. Low impact exercises like spin/exercise bike and walking are okay. Start closed-chain strengthening in about 1 month. A physical therapy prescription will be provided in the office and follow-up if needed. Return to work when comfortable on feet in about 1-3 weeks. Prescriptions: Aspirin 81 mg take 1 daily to prevent a blood clot for 14 days, starting tomorrow Naproxen 250 mg take 1-2 every 12 hours with a meal as needed for moderate pain Oxycodone 5 mg take 1-2 every 4-6 hours as needed for severe pain You may use cfrc-fbe-qgwllgn Tylenol (acetaminophen) as needed for mild pain. These pain medications may be taken all at once or in different combinations as needed. Also, recommend Colace (docusate) as a stool softener as surgery and pain medicine cause constipation. You may try gtbn-cqy-llpmoty diphenhydramine (Benadryl) 25-50 mg nightly as a sleep aid Dressings: Leave dressing in place for 3 days. May then remove and leave open to air or cover incisions with Band-Aids. Leave the sticky Steri-Strips in place until they fall off or remove them after you shower. May shower after 5 days. Follow-up: 10-[address] Young You may take off the leg compression stockings this evening at home. You may also leave them on a few days longer if you have a history of leg swelling or edema. Let us know right away if you develop any redness, drainage, fevers, chest pain, or trouble breathing. Do not drink alcohol or drive for at least 24 hours after anesthesia. Please call the office during business hours with any questions or concerns. Stand Alone Forms: Anesthesia Discharge Inst., Crutch Training Instructions, Gisella Villatoro (DSU) Referrals: Jarrod Young MD [ [facility] STAFF PHYSICIAN] - 12/09/23 2:45 pm Discharge Orders Discharge Orders: Discharge Order (Routine); Ordered 11/27/23 Ordered By: Renee Aaron DS: Diagnosis Discharge Diagnosis (1) Tear of cartilage of left knee: Status: Acute (2) Chondral loose body of left knee joint: Status: Acute
--- NOTE | 2023-11-27 11:08 | ROE_ITS ---
Date of service: 11/27/23 Time of Service: 15:00 Operative Note Operative Note DATE OF PROCEDURE: 11/27/23 PRE-OP DIAGNOSIS: Left knee 1. Cartilage loose bodies 2. Cartilage tear trochlea 3. Question partial ACL sprain POST-OP DIAGNOSIS: same Left knee 1. Cartilage loose bodies 2. Cartilage tear trochlea 3. Intact ACL PROCEDURE: Left knee arthroscopy with: 1. Removal of loose bodies, CPT# 52820: 3 full-thickness cartilage loose bodies removed from various compartments of the knee 2. Chondroplasty, CPT #64751: Medial trochlea trochlea donor site and small k issing lesion on medial patellar facet SURGEON: Jarrod Young SURGICAL CORSETIER: None None ANESTHESIA TYPE: Local By Surgeon and General LMA/ETT Refer to Anesthesia Record ESTIMATED BLOOD LOSS: 5 PATHOLOGY: none sent TOURNIQUET TIME: 0 Patient was transported to: PACU Patient's condition: stable Indications: Please see complete medical record for details. Findings: Exam under anesthesia: Full extension, flexion to 90 degrees, stable to varus and valgus, stable Jamil. More aggressive testing not done due to loose bodies. Arthroscopic findings: Moderate suprapatellar adhesions and patellofemoral and anterior intercondylar synovitis. Irregularly-shaped full-thickness medial trochlea cartilage lesion about 2 x 2 cm. Small inferior medial patellar margin cartilage fissures about 10 x 5 mm. Remainder of articular cartilage intact. Intact medial and lateral menisci. Intact ACL PCL. Procedure Description: In the operating room, general anesthesia was induced. The patient was positioned supine on the operating room table. All bony prominences were well- padded. Preoperative antibiotics were administered. The knee was prepped and draped in the usual sterile fashion. The correct patient, procedure, and side of the procedure were all verified prior to incision. Exam under anesthesia was performed. 10 cc of 0.25% bupivacaine containing epinephrine was infiltrated about the planned anteromedial and anterolateral knee arthroscopy portals. The portals were established and a complete diagnostic arthroscopy was performed with relevant findings detailed above. The cartilage donor site from the trochlea was readily identified in the medial aspect of the trochlea and about full-thickness in the center with irregular margins with probe and pictures used to delineate dimensions. The cartilage pieces were not in the medial gutter as in the MRI. 1 medium size full- thickness piece of cartilage was found in the suprapatellar pouch after resecting some adhesions. The remaining 2 pieces were in the lateral gutter and suction used to withdraw one of them into the anterior intercondylar area and the other into the suprapatellar pouch. All 3 pieces were removed with a pituitary rongeur fully intact under direct visualization. Suprapatellar adhesions were resected and no other loose bodies were found. There was a tiny loose body beneath the lateral meniscus in the lateral compartment that was removed with the shaver. Of note, ACL appearance was good and probed intact. The cartilage donor site was largely full-thickness with vertical margins on the central trochlea side and thinner stoo as the cartilage thinned more medially and superiorly. Inferiorly there is an irregular shaped and some cartilage corners that were lightly trimmed and smoothed with the torpedo shaver. A corresponding small medial margin patella lesion was debrided with a torpedo shaver of cartilage fissures to a more stable smooth contour. The trochlear donor site had a vascular appearance, hopefully forming fibrocartilage as this injury was relatively acute. No microfracture was done at this time. Under direct arthroscopic visualization an 18-gauge needle was passed into the knee from superolateral into the suprapatellar pouch. The knee was copiously irrigated with arthroscopic fluid until there was a clear effluent before being drained of all fluid. The anteromedial and anterolateral portals were closed in 3-0 Monocryl in a buried interrupted fashion. 20 cc of 0.25% bupivacaine with epinephrine containing 4 mg of morphine was infiltrated into the knee through the previously placed needle. Mastisol, Steri-Strips, and 4 x 4 gauze were applied over the incisions. The knee was then wrapped gently with an GUSTAVO comressive bandage. The patient awoke from anesthesia without complication and was transferred to the recovery room in a stable condition.
[2023-11-27] MEDS: Lactated Ringers 1,000 ML 30 ML IV (13:12)
--- NOTE | 2023-11-27 13:56 | W.ANESPRE ---
General Info Date of Service Date Performed: 11/27/23 Height: 5 ft 4 in Weight: 50.9 kg Body Mass Index (BMI): 19.2 Surgical Procedure: Operation Date: 11/27/23 13:25 Proposed Procedure Side Surgeon p Knee Arthroscopy w/Removal of Loose Bodies Left Jarrod Young MD Meds Allergies and Home Medications Allergies Allergy/AdvReac Type Severity Reaction Status Date / Time No Known Allergies Allergy Verified 11/27/23 12:46 Home Medication ?Medication ?Instructions ?Recorded dextroamphetamine-amphetamine ER 20 mg PO DAILY 11/23/23 20 mg 24hr capsule,extend release (Adderall XR) albuterol sulfate 90 mcg/actuation 2 inh inhalation Q4H PRN 11/26/23 breath activated powder inhaler aspirin 81 mg capsule 81 mg PO DAILY prevent blood clot 11/27/23 14 days #14 caps naproxen 250 mg tablet 250 - 500 mg (1 - 2 x 250 mg) PO 11/27/23 BID PRN moderate pain and swelling #30 tabs oxycodone 5 mg tablet 5 - 10 mg (1 - 2 x 5 mg) PO .q4-6h 11/27/23 PRN severe pain #12 tabs Current Visit Medications: Current Medications Generic Name Dose Route Start Last Admin Trade Name Freq PRN Reason Stop Dose Admin Ringer's Solution 1,000 mls @ 30 mls/hr 11/27/23 06:00 11/27/23 13:12 IV 11/27/23 23:59 30 mls/hr INFUSION BECKY Administration Cefazolin Sodium/Dextrose 2 gm in 50 mls @ 100 mls/hr 11/27/23 06:00 Ancef Duplex IVPB 11/27/23 23:59 PREOP BECKY Tranexamic Acid/Sodium Chloride 1,000 mg in 100 mls @ 600 mls/hr 11/27/23 06:00 IVPB 11/27/23 23:59 PREOP BECKY IV Miscellaneous Supplies 1 each 11/27/23 06:00 Iv Access IV 11/27/23 23:59 DIRECTED BECKY Oxycodone HCl 0 mg 11/27/23 07:17 Oxycodone 5 Mg Tab PO 12/27/23 07:16 Q3H PRN PRN Pain Sodium Chloride 0 ml 11/27/23 06:00 Normal Saline Flush 10 Ml Syr IV 11/27/23 23:59 PRN PRN Sodium Chloride 0 ml 11/27/23 06:00 Normal Saline 10 Ml Vial IJ 11/27/23 23:59 DIRECTED PRN Sterile Water 0 ml 11/27/23 06:00 Water,Injection,Sterile 10 Ml Vial IJ 11/27/23 23:59 DIRECTED PRN PFSH Active Problems Active Problems: Problem Status Onset Code Tear of cartilage of left knee Acute S83.207A Chondral loose body of left knee joint Acute 11/11/23 M23.42 Acute injury of left anterior cruciate ligament Acute S89.92XA Medical History Medical History ADHD Exercise-induced asthma Surgical History Surgical History Hx of endoscopy Tobacco Smoking/Tobacco Use Status: Never Alcohol Alcohol Intake: current Alcohol intake frequency: holidays/special occasions only Substance Use Substance use: Never Substance use type: does not use Vital Signs and Lab Results Vital Signs Most Recent Vital Signs in EMR: Most Recent Vital Signs Temp Pulse Resp BP Pulse Ox 37 C 64 16 125/90 100 11/27/23 12:39 11/27/23 12:39 11/27/23 12:39 11/27/23 12:39 11/27/23 12:39 Lab Results Blood Type / Crossmatch: No Data to Display Complete Blood Count: No Data to Display Complete Metabolic Panel: No Data to Display Liver Function Panel: No Data to Display Coagulation Panel: No Data to Display Cardiac Panel: No Data to Display Arterial Blood Gas: No Data to Display Venous Blood Gas: No Data to Display Pancreas Panel: No Data to Display Thyroid Panel: No Data to Display Infectious Disease: No Data to Display Blood Cultures: No Data to Display Toxicology Panel: Urine Amphetamines Screen Positive (Negative) A 11/27/23 11:11 Urine Benzodiazepines Screen Negative (Negative) 11/27/23 11:11 Urine Barbiturates Screen Negative (Negative) 11/27/23 11:11 Urine Cocaine Screen Negative (Negative) 11/27/23 11:11 Urine Methadone Screen Negative (Negative) 11/27/23 11:11 Urine Opiates Screen Negative (Negative) 11/27/23 11:11 Ur Tricyclic Antidepressants Screen Negative (Negative) 11/27/23 11:11 Ur Tetrahydrocannabinol (THC) Scrn Negative (Negative) 11/27/23 11:11 Panel: No Data to Display Anesthesia Assessment and Plan Anesthesia History Personal History: No History of Anesthesia Complications Family History: No Family History of Anesthesia Complications Exercise Tolerance Exercise Tolerance: Metabolic Equivalents>4 Pertinent Negatives Pertinent Negatives: No Symptoms of GERD, No Major Cardiovascular Symptoms or Complaints and No History of CVA/TIA Cardiac & Pulmonary Exam Cardiac Exam: Normal S1/S2 Heart Sounds Pulmonary Exam: Clear Bilateral Breath Sounds Implantable Cardiac Device Does patient have a Pacemaker or an ICD?: No Airway Exam Known Difficult Airway: No Mallampati Class: 1 Mouth Opening: Normal (> 3cm) Thyromental Distance: Greater than 3 cm Neck Range of Motion: Full ROM Neck Circumference: Normal Teeth Condition: Normal Dentition ASA Classification ASA Score: ASA 2 Emergency Case?: No NPO Status NPO Status: NPO Clears >2 hours, Solids >8 hours Status Status: Negative HCG Anesthesia Plan Resuscitation Status: Full Code Anesthesia Technique: General Anesthesia Airway Planned: LMA Monitors Used: Standard Monitors
[2023-11-27] MEDS: ceFAZolin 2 GM/50 ML BAG IVPB (15:25)
[2023-11-27] MEDS: TRANEXAMIC ACID/SOD. CHL. 1,000 MG/100 ML BAG 600 MG IVPB (15:33)
[2023-11-27] MEDS: Bupivacaine 0.25% Pres-Free W/EPI 30 ML VIAL (15:44)
[2023-11-27] MEDS: EPINEPHrine 10 MG/10 ML ML (16:00)
[2023-11-27] MEDS: MORPHine 4 MG/ML SYR (16:06)
[2023-11-27] MEDS: ACETAMINOPHEN 1,000 MG/100 ML BTL 400 MG IVPB (16:35)
[2023-11-27] MEDS: fentaNYL 100 MCG/2 ML VIAL IVP (16:49)
--- NOTE | 2023-11-27 17:12 | W.ANESPOSTOP ---
Postoperative Evaluation Date, Time and Location Date Performed: 11/27/23 Time Performed: 17:08 Patient Location: Day Surgery Unit Vital Signs Most Recent Imported Vital Signs: Most Recent Vital Signs Temp Pulse Resp BP Pulse Ox 36.5 C 78 17 104/46 L 100 11/27/23 16:55 11/27/23 16:56 11/27/23 16:56 11/27/23 16:56 11/27/23 16:56 Assessment Mental Status: Awake (Alert & Oriented to Patient Baseline) Airway and Respiratory Function: Patent airway with normal (patient baseline) respiratory exam Cardiovascular Function: Hemodynamically Stable Hydration Status: Adequately Hydrated Nausea & Vomiting: No Nausea or Vomiting Pain: Pain is tolerable per patient Peripheral Nerve Block: Patient did not receive a nerve block
== END 2023-11-27 18:12 | disposition home or self-care (01) ==
PROVIDERS: PCP Registered Nurse; Visit Provider Student in an Organized Health Care Education/Training Program
PROC: (CPT 29870; principal; 2023-11-27 13:15)
DX: M23.92 Unspecified internal derangement of left knee (principal); M23.42 Loose body in knee, left knee; S83.207A Unspecified tear of unspecified meniscus, current injury, left knee, initial encounter; X58.XXXA Exposure to other specified factors, initial encounter
CPT/HCPCS: 29877; 81025; J0131; J0690; J1100; J1885; J2001; J2250; J2270; J2405; J2704; J3010

== ENCOUNTER 2023-11-27 11:17 | Outpatient (REF) | payer OTHER, SELFPAY ==
[2023-11-27 13:43] LABS: *AMPHETAMINES SCREEN URINE Positive (Negative); *BARBITURATES SCREEN URINE Negative (Negative); *BENZODIAZEPINES SCREEN URINE Negative (Negative); Cannabinoids THC Negative (Negative); Cocaine Screen,Urine Negative (Negative); METHADONE URINE SCREEN Negative (Negative); OPIATES URINE SCREEN Negative (Negative)
[2023-11-27 13:44] LABS: Tricyclic Antidepressants Negative (Negative)
[2023-12-01 13:20] LABS: Methylphenidate Negative ng/mL (Cutoff: 10); Ritalinic Acid Negative ng/mL (Cutoff: 50)
== END 2023-11-27 11:18 | disposition home or self-care (01) ==
LOC: LBN 11:17
PROVIDERS: PCP Registered Nurse; Visit Provider Nurse Practitioner Psychiatric/Mental Health
DX: F90.2 Attention-deficit hyperactivity disorder, combined type (principal)
CPT/HCPCS: 80307; 80360

== ENCOUNTER 2024-01-19 12:56 | Outpatient (CLI) | payer OTHER, SELFPAY ==
--- NOTE | 2024-01-19 08:25 | DI.RAD_ITS ---
Exam(s) XR KNEE LT 3V AP,LAT,CORNELIUS EXAM: XR KNEE LT 3V AP,LAT,CORNELIUS CLINICAL HISTORY: POTENTIAL NEW LOOSE BODY M23.42 LEFT KNEE. TECHNIQUE: 2D digital imaging was performed. Three views. COMPARISON: CR,XR XR KNEE LT 3V AP,LAT,CORNELIUS from 11/12/2023 MR MR LOWER JOINT LT WO from 11/13/2023 FINDINGS: BONES: No acute fracture is present. No bony destructive lesion is seen. JOINTS: The knee is normally aligned. No joint effusion is seen. The joint spaces are maintained. SOFT TISSUE: Normal. IMPRESSION: Normal radiographs of the left knee. DATA REPOSITORY: RADIATION DOSE DELIVERED:
== END 2024-01-19 13:16 ==
LOC: DI 12:56
PROVIDERS: Visit Provider Student in an Organized Health Care Education/Training Program
DX: M23.42 Loose body in knee, left knee (principal)
CPT/HCPCS: 73562

== ENCOUNTER 2024-02-16 02:04 | Outpatient (CLI) | payer OTHER, SELFPAY ==
--- NOTE | 2024-02-16 07:15 | DI.MRI_ITS ---
Exam(s) MR LOWER JOINT LT WO EXAM: MR LOWER JOINT LT WO CLINICAL HISTORY: chondral loose body lt knee joint,M23.42 TECHNIQUE: Multiplanar multisequence MRI of the knee was performed. COMPARISON: CR,XR XR KNEE LT 3V AP,LAT,CORNELIUS from 11/12/2023 MR MR LOWER JOINT LT WO from 11/13/2023 CR XR KNEE LT 3V AP,LAT,CORNELIUS from 01/19/2024 FINDINGS: EFFUSION: The size of the knee joint effusion has significantly decreased when compared to images of 11/13/2023. There is presently only a very small amount of increased joint fluid. The Steel cyst in t he popliteal fossa has also significantly decreased in size. MARROW: Previously present floating chondral fragments in the medial gutter are no longer seen, appar ently surgically removed. There has been an increase in subarticular bone edema in the anterior aspec t of the medial femoral condyle at this level. The amount of articular cartilage loss at this level a ppears relatively similar to the prior study of 11/13/2023. Also noted is mild increase in marrow sig nal in the adjacent medial aspect of the patella but without fissure nor chondral loss in the retropa tellar cartilage in this region.There does not appear to be further progression of chondral denudatio n over the anterior aspect of the medial condyle. There is no significant defect in the retropatellar cartilage and there are no new loose chondral fragments in the joint space (as was previously the ca se on the November 2023 MRI study). There are no significant osseous lesions. PATELLOFEMORAL COMPARTMENT: The quadriceps tendon is intact. The patellar ligament is intact. There is no significant thinning of the retropatellar cartilage. No evidence of fissure nor signific ant chondral defect. No osteochondral defect at this level.There is no intraosseous signal to sugges t recent patellar dislocation. There are no patellar retinacular tears. CRUCIATE LIGAMENTS: Review described mild increased signal in the ACL is again noted but without evid ence of significant ACL tear. PCL remains intact. MEDIAL COMPARTMENT/MEDIAL MENISCUS: There are no tears of the medial meniscus evident.. MEDIAL COLLATERAL LIGAMENT: Intact LATERAL COMPARTMENT/LATERAL MENISCUS: There is no evidence of lateral meniscal tear.There are no elsa dral defects, osteochondral defects, subarticular marrow edema, nor osteophytes evident. ILIOTIBIAL BAND: Intact LATERAL COLLATERAL LIGAMENT COMPLEX: The fibular collateral ligament is intact. The biceps femoris t endon is intact.Popliteus muscle and tendon are intact. OTHER: There appears to be mild generalized muscle edema signal within the visualized gastrocnemius-s oleus group, posteriorly. IMPRESSION: 1. Compared to the prior MRI study of 11/13/2023 the size of the joint effusion has significantly dec reased as has the size of the Steel cyst in the popliteal fossa and there presently no loose intra-ar ticular bodies evident within the knee joint space. 2. With respect to the chondral defect site over the anterior aspect of the medial femoral condyle, i t does not appear to have increased in size, however, there is increase in amount of subarticular bon e edema in the anterior aspect of medial femoral condyle at this level evident on the present study. 3. There is also some mild bone edema in the adjacent medial aspect of the patella but without signif icant retropatellar cartilage loss evident. 4. There are no cruciate nor collateral ligament tears. DATA REPOSITORY:
--- NOTE | 2024-02-16 20:48 | DI.VRAD_ITS ---
PROCEDURE INFORMATION: Exam: MR Left Lower Extremity Joint Without Contrast, Knee Exam date and time: 02/16/2024 8:09 AM Age: 28 years old Clinical indication: Other: Chondral loose body lt knee joint TECHNIQUE: Imaging protocol: Magnetic resonance imaging of the left lower extremity joint without contrast. Exam focused on the knee. COMPARISON: MR LOWER JOINT LT WO 11/13/2023 10:30 AM FINDINGS: Bones/joints: Mild marrow edema within the inferomedial patella and underlying portion anterior distal femur. No significant arthritic changes. Articular cartilage appears intact. No acute fracture other focal osseous lesion Medial meniscus: Unremarkable. No tear. Lateral meniscus: Unremarkable. No tear. Anterior cruciate ligament: Unremarkable. No tear. Posterior cruciate ligament: Unremarkable. No tear. Medial capsule and supporting structures: Unremarkable. No tear. Lateral capsule and supporting structures: Unremarkable. No tear. Extensor mechanism of knee: Unremarkable. No tear. Soft tissues: Unremarkable. IMPRESSION: Slight marrow edema in the lower medial patellofemoral compartment, possibly due to early degenerative changes or recent trauma, depending on clinical history. No evidence of internal soft tissue derangement Dictated and Authenticated by: Luan Kumar MD. Ordering:ELLIE Garay MD
== END 2024-02-16 02:24 ==
LOC: DI 02:04
PROVIDERS: Visit Provider Student in an Organized Health Care Education/Training Program
DX: M23.42 Loose body in knee, left knee (principal)
CPT/HCPCS: 73721

== ENCOUNTER 2024-05-24 12:46 | Outpatient (CLI) | payer OTHER, SELFPAY ==
--- NOTE | 2024-05-24 10:45 | DI.MRI_ITS ---
Exam(s) MR LOWER JOINT LT WO EXAM: MR LOWER JOINT LT WO CLINICAL HISTORY: re-evaluate trochlear cartilage and bone injury,S83.207A. TECHNIQUE: Multiplanar multisequence MRI was performed. COMPARISON: MR MR LOWER JOINT LT WO from 11/13/2023 CR XR KNEE LT 3V AP,LAT,CORNELIUS from 01/19/2024 MR MR LOWER JOINT LT WO from 02/16/2024 FINDINGS: BONES: Mild amount of edema in the medial aspect of the patella, similar to prior. Of JOINTS: A small joint effusion is present. Articular cartilage: Patellofemoral joint: The patellar cartilage is unremarkable. Stable small defect at the anterior a spect of the medial femoral condyle Medial femoral tibial joint: Articular cartilage is unremarkable. Lateral femoral tibial joint: Articular cartilage is unremarkable. LIGAMENTS/TENDONS: Anterior Cruciate: Unremarkable. Posterior Cruciate: Unremarkable. Medial Collateral:Unremarkable. Lateral Collateral ligament complex: Unremarkable. Extensor mechanism: Unremarkable. Medial retinaculum: Unremarkable. Lateral retinaculum: Unremarkable. Popliteus: Unremarkable. MENISCI: The medial meniscus is unremarkable. The lateral meniscus is unremarkable. MUSCLES: Edema remains present in the gastrocnemius muscle. SOFT TISSUES: Unremarkable. IMPRESSION: Stable small area of cartilage defect at the anterior aspect of the medial femoral condyle. Stable e holly in the gastrocnemius muscles. Small joint effusion. No new abnormalities. DATA REPOSITORY:
== END 2024-05-24 13:06 ==
LOC: DI 12:47
PROVIDERS: Visit Provider Student in an Organized Health Care Education/Training Program
DX: R22.42 Localized swelling, mass and lump, left lower limb (principal)
CPT/HCPCS: 73721

== ENCOUNTER 2024-06-06 16:13 | Outpatient (REF) | payer OTHER, SELFPAY ==
[2024-06-06 12:42] LABS: *AMPHETAMINES SCREEN URINE Positive (Negative); *BARBITURATES SCREEN URINE Negative (Negative); *BENZODIAZEPINES SCREEN URINE Negative (Negative); Cannabinoids THC Negative (Negative); Cocaine Screen,Urine Negative (Negative); METHADONE URINE SCREEN Negative (Negative); OPIATES URINE SCREEN Negative (Negative)
[2024-06-06 12:44] LABS: Tricyclic Antidepressants Negative (Negative)
[2024-06-21 10:40] LABS: Amphetamine 10802 ng/mL (Cutoff: 25); Amphetamines Interpretation Positive.; MDA (Ecstasy Metabolite) Negative ng/mL (Cutoff: 25); MDMA (Ecstasy) Negative ng/mL (Cutoff: 25); Methamphetamine Negative ng/mL (Cutoff: 25); Phentermine Negative ng/mL (Cutoff: 25); Pseudoephedrine/Ephedrine Negative ng/mL (Cutoff: 25)
== END 2024-06-06 16:14 | disposition home or self-care (01) ==
LOC: LBN 16:13
PROVIDERS: Visit Provider Nurse Practitioner Psychiatric/Mental Health
DX: Z79.899 Other long term (current) drug therapy (principal); F90.2 Attention-deficit hyperactivity disorder, combined type
CPT/HCPCS: 80307; 80324

== ENCOUNTER 2024-10-10 11:02 | Outpatient (CLI) | payer OTHER, SELFPAY ==
--- NOTE | 2024-10-10 | DI.MRI_ITS ---
Exam(s) MR LOWER JOINT LT WO EXAM: MR LOWER JOINT LT WO CLINICAL HISTORY: INTERMITTENT KNEE PAIN,SWELLING, S/P OSTEOCHONDRAL ALLOGRAFT TECHNIQUE: Multiplanar multisequence MRI of the knee was performed. COMPARISON: MR MR LOWER JOINT LT WO from 05/24/2024 FINDINGS: AUDRA GENICULATE SOFT TISSUES: There is subcutaneous edema anteriorly and over the anteromedial aspect of the knee. Small foci of susceptibility artifact in the region of distal quadriceps noted related to recent surgery. There is also some edema in the medial and lateral heads of the gastro cine medi us, flexor hallucis longus and peroneus longus muscles. EFFUSION: There is a small joint effusion. No obvious loose intra-articular bodies. There is a tiny B jeannie's cyst. MARROW:There is a new area of cortical abnormality along the medial aspect of the femoral trochlea me asuring 13 x 14 mm consistent with recent history of osteochondral allograft at this location. There is no allograft displacement. Very minimal step-off is present between the graft and the [place] adjac ent cortex and there are underlying operative tracts and some surrounding marrow edema. The remainde r of the articular cartilage of the joint appears intact. However, there are areas subcortical marro w edema involving the large part of the patella more so medially than laterally. The retropatellar ca rtilage appears intact. There is a new small focus of subcortical marrow edema in the anterolateral aspect of the lateral fe moral condyle consistent with bone bruising. Cannot exclude potential for developing osteochondral de fect at this level. There are no incidental osseous lesions. PATELLOFEMORAL COMPARTMENT: There is susceptibility artifact and new abnormal thickening and increase d signal in the medial aspect of the distal quadriceps tendon, most probably postoperative. There al so new foci of artifact along the anterior aspect of the medial patellar retinaculum which is also th ickened, presumably postoperative. The actual medial collateral ligament appears intact. There is no significant signal abnormality related to the lateral patellar retinaculum. The patellar tendon appears intact. There is no significant thinning of the retropatellar cartilage. No evidence of fissure nor signific ant chondral defect in the retropatellar cartilage.. No osteochondral defect in the retropatellar car tilage. CRUCIATE LIGAMENTS: The anterior cruciate ligament is intact.The posterior cruciate ligament is intac t. MEDIAL COMPARTMENT/MEDIAL MENISCUS: There are no tears of the medial meniscus evident.. There are no new chondral defects, osteochondral defects, nor subarticular marrow edema, nor osteophy alexandra evident. MEDIAL COLLATERAL LIGAMENT: Intact LATERAL COMPARTMENT/LATERAL MENISCUS: There is no evidence of lateral meniscal tear.There is a new fo cus of subcortical marrow edema in the anterior-lateral aspect of the lateral femoral condyle. Consis tent with bone bruise. ILIOTIBIAL BAND: Intact LATERAL COLLATERAL LIGAMENT COMPLEX: The fibular collateral ligament is intact. The biceps femoris t endon is intact.Popliteus muscle and tendon are intact. IMPRESSION: 1. Osteochondral allograft now evident along the medial aspect of the femoral trochlea as described a lise. 2. Increased marrow edema involving a large part of the patella, more so medially than laterally. No evidence of patellar fracture. 3. Subcutaneous soft tissue edema and anteriorly and anteromedially as well as multiple small suscept ibility artifacts anterior to the distal quadriceps and along the medial patellar retinaculum, both a ppearing thickened, these findings appearing to be related to the recent surgical tract. 4. There is a new focus of subcortical marrow edema in the anterolateral aspect of the lateral femo ral condyle. Probable bone bruising but cannot exclude that this is a potential site for early develo ping osteochondral defect. 5. Small joint effusion. No obvious loose intra-articular bodies. DATA REPOSITORY:
--- NOTE | 2024-10-10 16:42 | DI.VRAD_ITS ---
Addendum created by Jose Raul Bullard MD on 10/10/2024 5:06:46 PM EDT: ADDENDUM: Report of the prior study is now provided and reviewed. As noted previously and in the current Findings, there is again mild edema involving some of the upper calf musculature. Initial report created on 10/10/2024 4:42:20 PM EDT: PROCEDURE INFORMATION: Exam: MR Left Lower Extremity Joint Without Contrast, Knee Exam date and time: 10/10/2024 3:01 PM Age: 29 years old Clinical indication: Other: Intermittent knee pain, swelling, S/P osteochondral allograft; Prior surgery; Surgery date: 1-6 months; Surgery type: S/P surgery 07/28/24 allograft (donor graft). Continued pain, heat TECHNIQUE: Imaging protocol: Magnetic resonance imaging of the left lower extremity joint without contrast. Exam focused on the knee. COMPARISON: 1. MR LOWER JOINT LT WO 05/24/2024 11:38 AM (report not provided) 2. CR XR KNEE LEFT 3 VIEWS 10/06/2024 8:52 AM (report not provided) FINDINGS: Bones/joints: There is again a very small knee joint effusion. There is a new area of cortical based abnormality along the medial aspect of the femoral trochlea measuring approximately 12 x 14 mm in width, compatible with the given history of osteochondral allograft. Minimal step-off is present between the graft and [place] cortex, and there are underlying operative tracts and surrounding marrow edema. Elsewhere, the articular cartilage of the knee is intact. There are increased areas of subcortical marrow edema involving much of the patella, most pronounced medially, which could be related to the surgery as well. Minor new subcortical cystic changes about the medial compartment are probably degenerative. A small new focus of subcortical marrow edema in the anterolateral aspect of the lateral femoral condyle could be some posttraumatic bone bruising. The bone marrow is otherwise normal in signal. Bursae: A very small Steel's cyst is again present. Medial meniscus: Unremarkable. No tear. Lateral meniscus: Unremarkable. No tear. Anterior cruciate ligament: Unremarkable. No tear. Posterior cruciate ligament: Unremarkable. No tear. Medial capsule and supporting structures: There are new foci of artifact along the anterior aspect of the medial patellar retinaculum, which is increasingly focally thickened, presumably postoperative in nature. The medial collateral ligament is intact. Lateral capsule and supporting structures: Unremarkable. No tear. Extensor mechanism of knee: There is new thickening, increased signal and ill definition involving the medial aspect of the distal quadriceps tendon, presumably postoperative. The patellar tendon is intact. Soft tissues: Mild subcutaneous soft tissue edema has developed anteriorly and anteromedially over much of the knee. There are new tiny foci of artifact in the subcutaneous soft tissues anterior to the distal quadriceps tendon, which are presumably postoperative in nature. There is again mild edema involving the visualized upper aspects of the medial and lateral heads of the gastrocnemius, flexor hallucis longus and peroneus longus muscles. IMPRESSION: 1. Very small knee joint effusion and Steel's cyst, as on 05/24/2024. 2. Mild new subcutaneous soft tissue edema anteriorly and anteromedially with new foci of subcutaneous artifact anterior to the distal quadriceps tendon and along the medial patellar retinaculum, both of which are focally thickened, presumably postoperative in nature. 3. New osteochondral allograft along the medial aspect of the femoral trochlea as described. 4. Increased subcortical marrow edema involving much of the patella, most pronounced medially, could be related to the surgery as well. 5. Minor new subcortical cystic changes about the medial compartment, probably degenerative. 6. Small new focal subcortical marrow edema in the anterolateral aspect of the lateral femoral condyle, could be posttraumatic bone bruising. Dictated and Authenticated by: Jose Raul Bullard MD. Orderin Jonathan Vigil MD
== END 2024-10-10 11:22 ==
LOC: DI 11:02
PROVIDERS: Visit Provider Orthopaedic Surgery
DX: M93.262 Osteochondritis dissecans, left knee (principal); S76.112A Strain of left quadriceps muscle, fascia and tendon, initial encounter; X58.XXXA Exposure to other specified factors, initial encounter
CPT/HCPCS: 73721

== ENCOUNTER 2024-11-22 11:10 | Outpatient (CLI) | payer OTHER, SELFPAY ==
--- NOTE | 2024-11-22 08:15 | DI.RAD_ITS ---
Exam(s) XR KNEE LT 3V AP,LAT,CORNELIUS EXAM: XR KNEE LT 3V AP,LAT,CORNELIUS CLINICAL HISTORY: evaluate left knee. TECHNIQUE: 2D digital imaging was performed of the left knee. Three images were obtained. Merchant,AP and lateral views were obtained. COMPARISON: CR XR KNEE LT 3V AP,LAT,CORNELIUS from 01/19/2024 CR XR KNEE LEFT 3 VIEWS from 10/06/2024 MR MR LOWER JOINT LT WO from 10/10/2024 FINDINGS: BONES: No acute fracture is present. The bones are osteopenic. JOINTS: The knee is normally aligned. There is a small joint effusion. No loose body. SOFT TISSUE: There is persistent thickening of the extensor tendon. IMPRESSION: 1. The bones are mildly osteopenic which may be due to decreased use. 2. Small joint effusion. 3. Persistent thickening of the distal quadriceps tendon. DATA REPOSITORY: RADIATION DOSE DELIVERED:
== END 2024-11-22 11:11 | disposition home or self-care (01) ==
LOC: DIORS 11:10
PROVIDERS: Visit Provider Student in an Organized Health Care Education/Training Program
DX: S83.207A Unspecified tear of unspecified meniscus, current injury, left knee, initial encounter (principal); M25.462 Effusion, left knee
CPT/HCPCS: 73562

== ENCOUNTER 2024-12-01 11:02 | Outpatient (CLI) | payer OTHER, SELFPAY ==
[2024-12-01 14:47] LABS: HCT 41.0 % (36.0-46.0); HGB 13.0 g/dL (11.2-15.7); MCH 29.7 pg (27.0-33.0); MCHC 31.7 % (32.0-36.0); MCV 94 fL (80-95); MPV 12.1 fL (8.0-11.0); Platelet Count 176 10^3/uL (130-400); RBC 4.38 10^6/uL (3.93-5.22); RDW 12.6 % (11.7-14.6); RDW-SD 43.5 fL; WBC 7.38 10^3/uL (4.4-10.8)
[2024-12-01 15:20] LABS: ALT 28 U/L (14-59); AST 18 U/L (15-37); Albumin 4.2 g/dL (3.4-5.0); Alkaline Phosphatase 54 U/L (46-116); Anion Gap 8.0 mmol/L (3-11); BUN 19 mg/dL (7-18); Bilirubin, Total 0.2 mg/dL (0.2-1.0); CO2 29.0 mmol/L (21.0-32.0); Calcium 9.1 mg/dL (8.5-10.1); Chloride 103 mmol/L (98-107); Estimated GFR 125.31 (mL/min/1.73m2); Glucose 89 mg/dL (74-106); Potassium 3.8 mmol/L (3.5-5.1); Sodium 140 mmol/L (136-145); Total Protein 6.9 g/dL (6.4-8.2)
== END 2024-12-01 11:03 | disposition home or self-care (01) ==
LOC: LBO 11:02
PROVIDERS: Visit Provider Registered Nurse
DX: F32.81 Premenstrual dysphoric disorder (principal); K29.50 Unspecified chronic gastritis without bleeding
CPT/HCPCS: 36415; 80053; 82784; 85027

== ENCOUNTER 2024-12-27 13:50 | Outpatient (CLI) | payer OTHER, SELFPAY ==
--- NOTE | 2024-12-27 10:15 | DI.MRI_ITS ---
Exam(s) MR LOWER JOINT LT WO EXAM: MR LOWER JOINT LT WO CLINICAL HISTORY: L KNEE PAIN,tear of cartilage,chondral loose body lt knee,m23.42,s83.207a. TECHNIQUE: Multiplanar multisequence MRI was performed. COMPARISON: CR,XR XR KNEE LT 3V AP,LAT,CORNELIUS from 11/12/2023 CR XR KNEE LT 3V AP,LAT,CORNELIUS from 01/19/2024 MR MR LOWER JOINT LT WO from 05/24/2024 CR XR KNEE LEFT 3 VIEWS from 10/06/2024 MR MR LOWER JOINT LT WO from 10/10/2024 CR XR KNEE LT 3V AP,LAT,CORNELIUS from 11/22/2024 FINDINGS: BONES: There is persistent edema at the osteochondral graft site in the medial femoral trochlea. The osteochondral graft appears in situ. There is fluid at the margins. No significant step-off at the margin. Improvement in the area of high signal in the lateral femoral condyle. Significant edema persists in the patella. Patchy areas of high signal throughout the marrow, consistent with disuse osteopenia. JOINTS: There is a small joint effusion is present. Articular cartilage: Patellofemoral joint: Articular cartilage is unremarkable. Medial femoral tibial joint: Articular cartilage is unremarkable. Lateral femoral tibial joint: Articular cartilage is unremarkable. LIGAMENTS/TENDONS: Anterior Cruciate: Unremarkable. Posterior Cruciate: Unremarkable. Medial Collateral:Unremarkable. Lateral Collateral ligament complex: Unremarkable. Extensor mechanism: The quadriceps tendon shows some thickening and mild edema distally. The patellar tendon appears normal. Medial retinaculum: Postsurgical changes. Lateral retinaculum: Unremarkable. Popliteus: Unremarkable. MENISCI: The medial meniscus is unremarkable. The lateral meniscus is unremarkable. MUSCLES: Unremarkable. SOFT TISSUES: Anterior soft tissue edema remains present. IMPRESSION: The allograft remains in-situ. There is persistent edema in both the allograft and in the surrounding medial femoral trochlea. There is a thin rim of fluid around the allograft. Persistent edema in the patella. Patchy marrow signal throughout consistent with disuse osteopenia. Postsurgical changes to the quadriceps tendon and medial patella retinaculum. Small joint effusion. DATA REPOSITORY:
--- NOTE | 2024-12-27 13:14 | DI.VRAD_ITS ---
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 No history of interval trauma or surgery is otherwise provided. TECHNIQUE: Imaging protocol: Magnetic resonance imaging of the left lower extremity joint without contrast. Exam focused on the knee. [id number](s) are provided. COMPARISON: 1. CR XR KNEE LT 3V AP,LAT,CORNELIUS 11/22/2024 10:58 AM 2. MR LOWER JOINT LT WO 10/10/2024 3:01 PM 3. CR XR KNEE LEFT 3 VIEWS 10/06/2024 8:52 AM 4. MR LOWER JOINT LT WO 02/16/2024 8:09 AM FINDINGS: Bones/joints: No diffuse acute abnormal marrow signal intensity is appreciated. There is some increased, mixed marrow appearance albeit similar distribution of the patella level. There is similar overall marrow signal about the anterolateral aspect of the medial femoral condyle with a history of previous graft related change. The overall orientation of this is similar with some subtle cortical offset residual channel of the margins suggestive of some interval incomplete fusion. There is some persistent marrow edema relatively similar although some areas of the this may be subtly decreased in intensity for example including medially. There are some subchondral cystic related changes present similar. There is some similar irregularity, thickening of the medial patellar retinaculum and could also be seen with processes including previous injury or interventional related sequela. Fat pads of knee: Hoffa's fat pad appears maintained. Medial meniscus: The medial meniscus appears grossly intact overall. Lateral meniscus: The lateral meniscus appears grossly intact overall. Anterior cruciate ligament: The ACL appears grossly intact. Posterior cruciate ligament: The PCL appears grossly intact. Medial capsule and supporting structures: The MCL appears grossly intact. Lateral capsule and supporting structures: The LCL complex appears grossly intact. Extensor mechanism of knee: There is some similar thickening along the quadriceps insertional margin. The patellar tendon appears grossly intact. Soft tissues: No significant subcutaneous fluid collections are appreciated. There does appear to be some subtle subcutaneous edema type signal along with the adjacent susceptibility anteriorly suggestive of previous intervention. There is some subtle strain type signal of the gastrocnemius margins as well as subtle about the inferior vastus musculature. There is some subtle muscular strain signal of the fibular margins although the intensity of some of these areas may be subtly decreased. The pes anserinus tendons appear grossly intact overall. There is a small to moderate amount of joint fluid present. Some of the areas of subcutaneous stranding may be subtly decreased. There is some motion artifact present. No other significant interval changes are appreciated. IMPRESSION: 1. There is history of osteochondral graft with similar overall appearance, alignment of about the distal anterior femur. There is some persistent edematous signal adjacent although may be subtly decreased suggestive of some subtle interval improvement. 2. There are similar areas of muscular strain type signal although the intensity of some of these areas appears subtly decreased suggestive of slight interval improvement. Dictated and Authenticated by: Jj Woodruff MD. Orderin Hector Garay MD
== END 2024-12-27 14:10 ==
LOC: DI 13:50
PROVIDERS: Visit Provider Student in an Organized Health Care Education/Training Program
DX: Z98.890 Other specified postprocedural states (principal); M23.42 Loose body in knee, left knee; M25.462 Effusion, left knee
CPT/HCPCS: 73721

== ENCOUNTER 2025-02-21 11:48 | Outpatient (CLI) | payer OTHER, SELFPAY ==
[2025-02-21 16:29] LABS: INR 1.0 (0.9-1.1); PTT Activated 24.8 sec (20.6-30.2); Prothrombin Time 9.9 sec (9.1-11.1)
[2025-02-21 17:02] LABS: Iron 53 ug/dL (50-170); Total Iron Binding Capacity 342 ug/dL (250-450); Transferrin Sat 15 % (15-50)
[2025-02-21 17:42] LABS: Ferritin 77 ng/mL (8-252); Vitamin B12 745 pg/mL (193-986)
== END 2025-02-21 11:49 | disposition home or self-care (01) ==
LOC: LBO 11:48
PROVIDERS: Visit Provider Registered Nurse
DX: L81.9 Disorder of pigmentation, unspecified (principal)
CPT/HCPCS: 36415; 82607; 82728; 83540; 83550; 85045; 85610; 85730